=== PATIENT | male | born 1980 | race Two or more races ===

== ENCOUNTER 2020-09-02 00:36 | Emergency (ER) | payer OTHER ==
[~2020-09-02] VITALS: Ht 157.5 cm; Wt 63.6 kg
--- NOTE | 2020-09-02 01:02 | ED.ADGEN ---
General Adult EDM: Chief Complaint: BACK PAIN OR INJURY HPI: HPI: Patient is a 40 year old male presents via EMS for low back pain that radiates down his leg for 3 days. Patient had been doing work on taking for fence prior to the pain starting. Denies any falls. Denies any fevers, bowel or bladder d ysfunction, weakness, or any hematuria. Has been taking Tylenol for the pain without improvement. Denies any past medical history or surgical history. Denies tobacco, alcohol, drug use. Patient speaks Hmong and history was facilitated through spanish interpreter/translator phone Review of Systems: Review of Systems: Constitutional: Denies fever or chills. [] Eyes: Denies change in visual acuity. [] HENT: Denies nasal congestion or sore throat. [] Respiratory: Denies cough or shortness of breath. [] Cardiovascular: Denies chest pain or edema. [] GI: Denies abdominal pain, nausea, vomiting, bloody stools or diarrhea. [] : Denies dysuria. [] Musculoskeletal: Back pain rating down left Integument: Denies rash. [] Neurologic: Denies headache, focal weakness or sensory changes. [] Endocrine: Denies polyuria or polydipsia. [] Lymphatic: Denies swollen glands. [] Psychiatric: Denies depression or anxiety. [] Current Medications: Current Medications Medications (Trade) Dose Ordered Sig/Panda Start Time Stop Time Status Last Admin Dose Admin Ketorolac Tromethamine (Toradol Im) 60 mg 1X ONCE 09/02/20 01:30 09/02/20 01:31 DC 09/02/20 01:39 60 MG Orphenadrine Citrate (Norflex) 60 mg 1X ONCE 09/02/20 01:30 09/02/20 01:31 DC 09/02/20 01:39 60 MG Allergies: Allergies: Allergies Coded Allergies Type Severity Reaction Last Updated Verified No Known Drug Allergies 09/02/20 No Physical Exam: PE: Constitutional: Well developed, well nourished, mild distress, non-toxic appearance. [] HENT: Normocephalic, atraumatic, bilateral external ears normal, oropharynx moist, no oral exudates, nose normal. [] Eyes: PERRLA, EOMI, conjunctiva normal, no discharge. [] Neck: Normal range of motion, no tenderness, supple, no stridor. [] Cardiovascular:Heart rate regular rhythm, no murmur [] Lungs & Thorax: Bilateral breath sounds clear to auscultation [] Abdomen: Bowel sounds normal, soft, no tenderness, no masses, no pulsatile masses. [] Skin: Warm, dry, no erythema, no rash. [] Back: Left lower tenderness, no step-off or deformities, positive supine straight leg raise test on the right Extremities: No tenderness, no cyanosis, no clubbing, ROM intact, no edema. [] Neurologic: Alert and oriented X 3, normal motor function, normal sensory function, no focal deficits noted. [] Psychologic: Affect normal, judgement normal, mood normal. [] Current Patient Data: Vital Signs: Vital Signs Date Time Temp Pulse Resp B/P (MAP) Pulse Ox O2 Delivery O2 Flow Rate FiO2 09/02/20 01:04 98.1 78 21 143/84 (103) 97 Room Air 98.1 EKG: EKG: [] Heart Score: Risk Factors: Risk Factors: DM, Current or recent (<one month) smoker, HTN, HLP, family history of CAD, obesity. Risk Scores: Score 0 - 3: 2.5% MACE over next 6 weeks - Discharge Home Score 4 - 6: 20.3% MACE over next 6 weeks - Admit for Clinical Observation Score 7 - 10: 72.7% MACE over next 6 weeks - Early Invasive Strategies Radiology/Procedures: Radiology/Procedures: s1 ra CT LUMBAR SPINE WO CONTRAST History:Reason: radiculopathy / Spl. Instructions: / History: Technique: Noncontrast CT was performed of the lumbar spine. Multiplanar reconstructions were performed. Exposure: One or more of the following individualized dose reduction techniques were utilized for this examination: 1. Automated exposure control 2. Adjustment of the mA and/or kV according to patient size 3. Use of iterative reconstruction technique. Comparison: None Findings: Normal vertebral body height and alignment. No fracture. T12-L1: No canal or neuroforaminal narrowing. L1-L2: No canal or neuroforaminal narrowing. L2-L3: Small disc bulge. No canal or neuroforaminal narrowing. L3-L4: Small broad-based disc bulge. Mild facet arthropathy. No canal or neuroforaminal narrowing. L4-L5: Broad-based disc bulge. Mild facet arthropathy. Bilateral subarticular recess narrowing. Minimal canal narrowing. Ligament of flavum thickening. Mild bilateral neuroforaminal narrowing. L5-S1: Broad-based disc bulge with superimposed left subarticular disc extrusion extending slightly inferiorly. Bilateral subarticular recess narrowing, left greater than right. Mild right and moderate left neuroforaminal narrowing. Minimal canal narrowing. Mild facet arthropathy. Abutment of the bilateral descending S1 nerve roots, left greater than right. Impression: 1. Multilevel lumbar spondylosis most prominent L4-L5 and L5-S1. 2. L5-S1 disc bulge with left subarticular disc extrusion contributing to bilateral subarticular recess narrowing with abutment of the descending S1 nerve roots, left greater than right. Correlate for radiculopathy. [] Course & Med Decision Making: Course & Med Decision Making Pertinent Labs and Imaging studies reviewed. (See chart for details) [] Dragon Disclaimer: Dragon Disclaimer: This electronic medical record was generated, in whole or in part, using a voice recognition dictation system. Departure Departure Impression: Primary Impression: Herniation of intervertebral disc between L5 and S1 Disposition: 01 DC HOME SELF CARE/HOMELESS Referrals: [facility] Patient Instructions: Back Exercises, [id number] Scripts Cyclobenzaprine Hcl (CYCLOBENZAPRINE HCL) 10 Mg Tablet 1 TAB PO TID PRN PRN for PAIN for 5 Days, #15 TAB Prov: EMELINA PAREKH MD 09/02/20 Ibuprofen (IBUPROFEN) 800 Mg Tablet 800 MG PO PRN Q8HRS PRN for INFLAMMATION for 10 Days, #30 TAB Prov: EMELINA PAREKH MD 09/02/20 EMELINA PAREKH MD Sep 02, 2020 01:02
[2020-09-02] MEDS: KETOROLAC 60 MG/2 ML VIAL. IM ONE (01:39)
[2020-09-02] MEDS: ORPHENADRINE CITRATE 60 MG/2 ML VIAL. IM ONE (01:39)
--- NOTE | 2020-09-02 01:59 | RAD ---
CT LUMBAR SPINE WO CONTRAST History:Reason: radiculopathy / Spl. Instructions: / History: Technique: Noncontrast CT was performed of the lumbar spine. Multiplanar reconstructions were performed. Exposure: One or more of the following individualized dose reduction techniques were utilized for this examination: 1. Automated exposure control 2. Adjustment of the mA and/or kV according to patient size 3. Use of iterative reconstruction technique. Comparison: None Findings: Normal vertebral body height and alignment. No fracture. T12-L1: No canal or neuroforaminal narrowing. L1-L2: No canal or neuroforaminal narrowing. L2-L3: Small disc bulge. No canal or neuroforaminal narrowing. L3-L4: Small broad-based disc bulge. Mild facet arthropathy. No canal or neuroforaminal narrowing. L4-L5: Broad-based disc bulge. Mild facet arthropathy. Bilateral subarticular recess narrowing. Minimal canal narrowing. Ligament of flavum thickening. Mild bilateral neuroforaminal narrowing. L5-S1: Broad-based disc bulge with superimposed left subarticular disc extrusion extending slightly inferiorly. Bilateral subarticular recess narrowing, left greater than right. Mild right and moderate left neuroforaminal narrowing. Minimal canal narrowing. Mild facet arthropathy. Abutment of the bilateral descending S1 nerve roots, left greater than right. Impression: 1. Multilevel lumbar spondylosis most prominent L4-L5 and L5-S1. 2. L5-S1 disc bulge with left subarticular disc extrusion contributing to bilateral subarticular recess narrowing with abutment of the descending S1 nerve roots, left greater than right. Correlate for radiculopathy. Electronically signed by: Dago Josue DO (09/02/2020 1:56 AM) [facility]
[2020-09-02] MEDS ORDERED: CYCL10TA2 PO (02:21)
[2020-09-02] MEDS ORDERED: IBUP-1060 PO (02:21)
[2020-09-02] MEDS: HYDROmorphone 2 MG/ML VIAL IM ONE (03:30)
[2020-09-02 03:37] VITALS: BP 120/78
[2020-09-03] MEDS ORDERED: OXYC1TAB15 PO (04:38)
[2020-09-03] MEDS ORDERED: METH4TAB2 PO (04:38)
== END 2020-09-02 03:50 | disposition home or self-care (01) ==
LOC: ER 00:36
DX: M51.27 Other intervertebral disc displacement, lumbosacral region (principal); M47.817 Spondylosis without myelopathy or radiculopathy, lumbosacral region
CPT/HCPCS: 72131; 96372; 99285; J1170; J1885; J2360

== ENCOUNTER 2020-09-03 03:27 | Emergency (ER) | payer OTHER ==
[~2020-09-03] VITALS: Ht 160 cm; Wt 63.6 kg
[~2020-09-03 03:27] MED LIST: CYCL10TA2 PO; IBUP-1060 PO
[2020-09-03 03:29] VITALS: BP 115/70
--- NOTE | 2020-09-03 03:42 | PHYS DOC ---
Past Medical History Past Medical History: No Pertinent History Past Surgical History: No Surgical History Smoking Status: Current Every Day Smoker Alcohol Use: None General Adult EDM: Chief Complaint: BACK PAIN - NO INJURY HPI: HPI: Patient is a 40 year old male who arrives via EMS with a chief complaint of lumbar back pain. Patient was seen here yesterday for similar symptoms. Patient was sent home with Flexeril and ibuprofen. Patient had a CT done y esterday which showed a disc herniation at L5-S1. Patient has had pain for the last 4 days. Patient denies any specific trauma. Denies any falls. Denies any fevers, bowel or bladder dysfunction, weakness, or any hematuria. Pain is currently 10 out of 10 and sharp stabbing and continues to radiate down the left leg Review of Systems: Review of Systems: Constitutional: Denies fever or chills. [] Eyes: Denies change in visual acuity. [] HENT: Denies nasal congestion or sore throat. [] Respiratory: Denies cough or shortness of breath. [] Cardiovascular: Denies chest pain or edema. [] GI: Denies abdominal pain, nausea, vomiting, bloody stools or diarrhea. [] : Denies dysuria. [] Musculoskeletal: Complains of back pain Integument: Denies rash. [] Neurologic: Denies headache, focal weakness or sensory changes. [] Endocrine: Denies polyuria or polydipsia. [] Lymphatic: Denies swollen glands. [] Psychiatric: Denies depression or anxiety. [] Heart Score: Risk Factors: Risk Factors: DM, Current or recent (<one month) smoker, HTN, HLP, family history of CAD, obesity. Risk Scores: Score 0 - 3: 2.5% MACE over next 6 weeks - Discharge Home Score 4 - 6: 20.3% MACE over next 6 weeks - Admit for Clinical Observation Score 7 - 10: 72.7% MACE over next 6 weeks - Early Invasive Strategies Current Medications: Current Medications Medications (Trade) Dose Ordered Sig/Panda Start Time Stop Time Status Last Admin Dose Admin Diazepam (Valium) 5 mg 1X ONCE 09/03/20 03:45 09/03/20 03:46 UNV Hydromorphone HCl (Dilaudid) 1 mg 1X ONCE 09/03/20 03:45 09/03/20 03:46 UNV Ketorolac Tromethamine (Toradol Im) 30 mg 1X ONCE 09/03/20 03:45 09/03/20 03:46 UNV Allergies: Allergies: Allergies Coded Allergies Type Severity Reaction Last Updated Verified No Known Drug Allergies 09/02/20 No Physical Exam: PE: Constitutional: Well developed, well nourished, no acute distress, non-toxic appearance. [] HENT: Normocephalic, atraumatic, bilateral external ears normal, no trismus nose normal. [] Eyes: PERRLA, EOMI, conjunctiva normal, no discharge. [] Neck: Normal range of motion, no tenderness, supple, no stridor. [] Cardiovascular:Heart rate regular rhythm, no murmur [] Lungs & Thorax: Bilateral breath sounds clear, no respiratory distress Abdomen: soft, no tenderness, no masses, no pulsatile masses. [] Skin: Warm, dry, no erythema, no rash. [] Back: Tenderness to left lower lumbar area Extremities: No tenderness, no cyanosis, no clubbing, ROM intact, no edema. [] Neurologic: Alert and oriented X 3, normal motor function, normal sensory function, no focal deficits noted. [No saddle anesthesia, dorsiflexion of the great toes intact bilateral lower extremities] Psychologic: Affect normal, judgement normal, mood normal. [] Current Patient Data: Vital Signs: Vital Signs Date Time Temp Pulse Resp B/P (MAP) Pulse Ox O2 Delivery O2 Flow Rate FiO2 09/03/20 04:00 100 Room Air EKG: EKG: [] Radiology/Procedures: Radiology/Procedures: [] Course & Med Decision Making: Course & Med Decision Making Pertinent Labs and Imaging studies reviewed. (See chart for details) [] 40-year-old male arrives via EMS with a chief complaint of radicular back pain. Patient has no signs of cauda equina. Dorsiflexion of great toes intact. There is no saddle anesthesia. Patient reassessed at 4:35 AM and clinically improved. Patient will be placed on opiate pain medicine and a Medrol Dosepak. Patient is otherwise stable for discharge and outpatient follow-up. Return precautions given. Jean Pierre Disclaimer: Jean Pierre Disclaimer: This electronic medical record was generated, in whole or in part, using a voice recognition dictation system. Departure Departure Impression: Primary Impression: Lumbar radiculopathy Disposition: 01 DC HOME SELF CARE/HOMELESS Condition: STABLE Referrals: NO PCP (PCP) JERI LO MD 2-3 DAYS Patient Instructions: Lumbar Puncture and Cerebrospinal Fluid Exam Additional Instructions: EMERGENCY DEPARTMENT GENERAL DISCHARGE INSTRUCTIONS THANK YOU for coming to [facility] Emergency Department (ED) felecia feldman and trusting us with your care. We trust that you had a positive experience in our Emergency Department. If you wish to speak to the department Management you can contact the department store door greeter at . YOUR FOLLOW UP INSTRUCTIONS ARE FOLLOWS: Do you have a private doctor? If you do not have a private doctor, please ask for a resource list of physicians or clinics that may be able to assist you with follow up care. The Emergency Physician has interpreted your x-rays. The X-ray specialist will also review them. If there is a change in the findings you will be notified in 48 hours when at all possible. A lab test or lab culture may have been done, your results will be reviewed and you will be notified if you need a change in treatment. ADDITIONAL INSTRUCTIONS AND INFORMATION Your care today has been supervised by a physician who is specially trained in emergency care. Many problems require more than one evaluation for a complete diagnosis and treatment. We recommend that you schedule your follow up appointment as recommended to ensure complete treatment of your illness or injury. If you are unable to obtain follow up care and continue to have a problem, or if your condition worsens we recommend that you return to the ED. We are not able to safely determine your condition over the phone nor are we able to give sound medical advice over the phone. For these safety reasons, if you call for medical advice we will ask you to come to the ED for further evaluation If you have any questions regarding these discharge instructions please call the ED at . SAFETY INFORMATION In the interest of safety, wellness, and injury prevention; we encourage you to wear your seatbelt, if you smoke; quit smoking, and we encourage your family to use protective helmet for bicycling and other sporting events that present an increased risk for head injury. IF YOUR SYMPTOMS WORSEN OR NEW SYMPTOMS DEVELOP, OR YOU HAVE CONCERNS ABOUT YOUR CONDITION; OR IF YOUR CONDITION WORSENS WHILE YOU ARE WAITING FOR YOUR FOLLOW UP APPOINTMENT; EITHER CONTACT YOUR PRIMARY CARE DOCTOR, THE PHYSICIAN WHOSE NAME AND NUMBER YOU WERE GIVEN, OR RETURN TO THE ED IMMEDIATELY. Scripts Methylprednisolone (MEDROL) 4 Mg Tab.ds.pk 1 PKG PO UD, #1 PKG Prov: GUILLERMO JOHNSON MD 09/03/20 Oxycodone/Apap 5-325 (PERCOCET 5-325 MG TABLET ) 1 Each Tablet 1-2 EACH PO PRN TID PRN for PAIN, #16 TAB pain Prov: GUILLERMO JOHNSON MD 09/03/20 GUILLERMO JOHNSON MD Sep 03, 2020 03:42
[2020-09-03] MEDS: diazePAM 5 MG TABLET PO ONE (04:00)
[2020-09-03] MEDS: HYDROmorphone 2 MG/ML VIAL IM ONE (04:00)
[2020-09-03] MEDS: KETOROLAC 30 MG/ML VIAL. IM ONE (04:01)
[2020-09-03] MEDS ORDERED: METH4TAB2 PO (04:38)
[2020-09-03] MEDS ORDERED: OXYC1TAB15 PO (04:38)
== END 2020-09-03 04:50 | disposition home or self-care (01) ==
LOC: ER 03:27
DX: M54.16 Radiculopathy, lumbar region (principal); F17.200 Nicotine dependence, unspecified, uncomplicated
CPT/HCPCS: 96372; 99284; J1170; J1885

== ENCOUNTER 2020-09-07 19:27 | Emergency (ER) | payer OTHER ==
[~2020-09-07] VITALS: Ht 165.1 cm; Wt 65.9 kg
[~2020-09-07 19:27] MED LIST changes: +METH4TAB2 PO; +OXYC1TAB15 PO
[2020-09-07 19:55] LABS: BASO % 0 % (0-3); EOS # 0.1 x10^3/uL (0.0-0.7); EOS % 1 % (0-3); HEMATOCRIT 43.2 % (39.0-53.0); HEMOGLOBIN 14.4 g/dL (13.0-17.5); LYMPH # 1.6 x10^3/uL (1.0-4.8); LYMPH % 24 % (24-48); MEAN CORPUSCULAR HEMOGLOBIN 29 pg (25-35); MEAN CORPUSCULAR HGB CONC 33 g/dL (31-37); MEAN CORPUSCULAR VOLUME 86 fL (79-100); MONO # 0.4 x10^3/uL (0.0-1.1); MONO % 6 % (0-9); NEUT # 4.6 x10^3/uL (1.8-7.7); NEUT % 69 % (31-73); PLATELET COUNT 213 x10^3/uL (140-400); RED CELL DISTRIBUTION WIDTH 13.4 % (11.5-14.5); WHITE BLOOD COUNT 6.6 x10^3/uL (4.0-11.0)
[2020-09-07] MEDS ORDERED: HYDROmorphone 2 MG/ML VIAL IVP ONE (20:00)
[2020-09-07] MEDS ORDERED: ORPHENADRINE CITRATE 60 MG/2 ML VIAL. IM ONE (20:15)
[2020-09-07 20:18] LABS: ALBUMIN/GLOBULIN RATIO 0.9 (1.0-1.7); C-REACTIVE PROTEIN 1.3 mg/L (0-3.3); CALCIUM 8.3 mg/dL (8.5-10.1); POTASSIUM 3.9 mmol/L (3.5-5.1); TOTAL BILIRUBIN 0.3 mg/dL (0.2-1.0); TOTAL PROTEIN 6.2 g/dL (6.4-8.2)
[2020-09-07 20:22] LABS: GFR 81.9
--- NOTE | 2020-09-07 20:22 | ED.ADGEN ---
Past Medical History Past Medical History: Other Additional Past Medical Histor: HERNIATED DISC BETWEEN L5-S1 Past Surgical History: No Surgical History Smoking Status: Current Every Day Smoker Alcohol Use: None General Adult EDM: Chief Complaint: LOWER BACK PAIN OR INJURY HPI: HPI: Patient is a 40 year old male who presents with worsening left low back pain with left-sided sciatica down to his ankle. Patient was seen here 5 and 4 days ago for the same. 4 days ago he had a lumbar puncture. Today he went and got acupuncture and massage therapies. Patient states he is unable to walk or sit on the toilet due to the pain. Denies any numbness or muscle weakness. Is able to move both lower extremities. No bowel or bladder dysfunction. No fevers, no new injuries. Patient states long and history is provided via translation services Review of Systems: Review of Systems: Negative except HPI Current Medications: Current Medications Medications (Trade) Dose Ordered Sig/Panda Start Time Stop Time Status Last Admin Dose Admin Hydromorphone HCl (Dilaudid) 2 mg 1X ONCE 09/07/20 23:55 09/07/20 23:56 DC 09/08/20 00:02 2 MG Orphenadrine Citrate (Norflex) 60 mg 1X ONCE 09/07/20 20:15 09/07/20 20:18 DC 09/07/20 20:59 60 MG Allergies: Allergies: Allergies Coded Allergies Type Severity Reaction Last Updated Verified No Known Drug Allergies 09/02/20 No Physical Exam: PE: Constitutional: Well developed, well nourished, moderate distress HENT: Normocephalic, atraumatic, bilateral external ears normal, oropharynx moist, no oral exudates, nose normal. [] Eyes: PERRLA, EOMI, conjunctiva normal, no discharge. [] Neck: Normal range of motion, no tenderness, supple, no stridor. [] Cardiovascular:Heart rate regular rhythm, no murmur [] Lungs & Thorax: Bilateral breath sounds clear to auscultation [] Abdomen: Bowel sounds normal, soft, no tenderness, no masses, no pulsatile masses. [] Skin: Warm, dry, no erythema, no rash. [] Back: Tenderness on left lower back Extremities: No tenderness, no cyanosis, no clubbing, ROM intact, no edema. [] Neurologic: Alert and oriented X 3, normal motor function, normal sensory function, no focal deficits noted. [] Psychologic: Affect normal, judgement normal, mood normal. [] Current Patient Data: Labs: Laboratory Tests Test 09/07/20 19:37 White Blood Count 6.6 x10^3/uL (4.0-11.0) Red Blood Count 5.00 x10^6/uL (4.30-5.70) Hemoglobin 14.4 g/dL (13.0-17.5) Hematocrit 43.2 % (39.0-53.0) Mean Corpuscular Volume 86 fL (79-100) Mean Corpuscular Hemoglobin 29 pg (25-35) Mean Corpuscular Hemoglobin Concent 33 g/dL (31-37) Red Cell Distribution Width 13.4 % (11.5-14.5) Platelet Count 213 x10^3/uL (140-400) Neutrophils (%) (Auto) 69 % (31-73) Lymphocytes (%) (Auto) 24 % (24-48) Monocytes (%) (Auto) 6 % (0-9) Eosinophils (%) (Auto) 1 % (0-3) Basophils (%) (Auto) 0 % (0-3) Neutrophils # (Auto) 4.6 x10^3/uL (1.8-7.7) Lymphocytes # (Auto) 1.6 x10^3/uL (1.0-4.8) Monocytes # (Auto) 0.4 x10^3/uL (0.0-1.1) Eosinophils # (Auto) 0.1 x10^3/uL (0.0-0.7) Basophils # (Auto) 0.0 x10^3/uL (0.0-0.2) Sodium Level 141 mmol/L (136-145) Potassium Level 3.9 mmol/L (3.5-5.1) Chloride Level 107 mmol/L (98-107) Carbon Dioxide Level 30 mmol/L (21-32) Anion Gap 4 (6-14) L Blood Urea Nitrogen 16 mg/dL (8-26) Creatinine 1.0 mg/dL (0.7-1.3) Estimated GFR (Cockcroft-Gault) 81.9 BUN/Creatinine Ratio 16 (6-20) Glucose Level 162 mg/dL (70-99) H Calcium Level 8.3 mg/dL (8.5-10.1) L Total Bilirubin 0.3 mg/dL (0.2-1.0) Aspartate Amino Transferase (AST) 33 U/L (15-37) Alanine Aminotransferase (ALT) 78 U/L (16-63) H Alkaline Phosphatase 66 U/L (46-116) C-Reactive Protein, Quantitative 1.3 mg/L (0-3.3) Total Protein 6.2 g/dL (6.4-8.2) L Albumin 3.0 g/dL (3.4-5.0) L Albumin/Globulin Ratio 0.9 (1.0-1.7) L Laboratory Tests 09/07/20 19:37 Laboratory Tests 09/07/20 19:37 Vital Signs: Vital Signs Date Time Temp Pulse Resp B/P (MAP) Pulse Ox O2 Delivery O2 Flow Rate FiO2 09/08/20 00:07 98.7 72 24 125/86 (99) 98 Room Air 98.7 EKG: EKG: [] Heart Score: Risk Factors: Risk Factors: DM, Current or recent (<one month) smoker, HTN, HLP, family history of CAD, obesity. Risk Scores: Score 0 - 3: 2.5% MACE over next 6 weeks - Discharge Home Score 4 - 6: 20.3% MACE over next 6 weeks - Admit for Clinical Observation Score 7 - 10: 72.7% MACE over next 6 weeks - Early Invasive Strategies Radiology/Procedures: Radiology/Procedures: Date: 09/07/2020 8:14 PM Indication: post LP complication, pain, weakness Comparison: None. Technique: Helical CT images of the lumbar spine were obtained without contrast. Coronal and sagittal reformatted images were also performed. One or more of the following dose reduction techniques were utilized: Automated exposure control (AEC), Adjustment of mA and/or kV according to patient size, Use of iterative reconstruction technique such as ASiR, CT scan done according to ALARA and image gently/image wisely. Findings: The lumbar spine is normally aligned. No acute fracture. Vertebral body heights are maintained without compression deformity. Mild degenerative disc disease. Unchanged lumbar spondylosis, worst at L5-S1 where there is a left paracentral inferiorly migrating disc extrusion which narrowing is the left greater than right lateral recesses. No soft tissue abnormality within the visualized abdomen or pelvis. The visualized abdominal aorta is normal caliber. IMPRESSION: 1. No evidence of hyperdense spinal canal hematoma. 2. Unchanged lumbar spondylosis, worst at L5-S1 with a prominent disc extrusion. [] Course & Med Decision Making: Course & Med Decision Making Pertinent Labs and Imaging studies reviewed. (See chart for details) Pain improved and CT exam unchanged. Discussed patient needs to continue his stretching exercises and was again given information for neurosurgery to follow- up with [] Jean Pierre Disclaimer: Jean Pierre Disclaimer: This electronic medical record was generated, in whole or in part, using a voice recognition dictation system. Departure Departure Impression: Primary Impression: Sciatica of left side Disposition: 01 DC HOME SELF CARE/HOMELESS Condition: STABLE Referrals: JERI LO MD Patient Instructions: Back Exercises, Generic, [employer] Scripts Oxycodone Hcl (OXYCODONE HCL IMMED.RELEASE) 10 Mg Tablet 1 TAB PO PRN TID PRN for pain MDD 3 Tablet(s) for 5 Days, #15 TAB 0 Refills Prov: EMELINA PAREKH MD 09/07/20 EMELIAN PAREKH MD Sep 07, 2020 20:21
--- NOTE | 2020-09-07 20:46 | RAD ---
CT LUMBAR SPINE WO Date: 09/07/2020 8:14 PM Indication: post LP complication, pain, weakness Comparison: None. Technique: Helical CT images of the lumbar spine were obtained without contrast. Coronal and sagitta l reformatted images were also performed. One or more of the following dose reduction techniques were utilized: Automated exposure control (AEC), Adjustment of mA and/or kV according to patient size, Us e of iterative reconstruction technique such as ASiR, CT scan done according to ALARA and image gentl y/image wisely. Findings: The lumbar spine is normally aligned. No acute fracture. Vertebral body heights are maintained withou t compression deformity. Mild degenerative disc disease. Unchanged lumbar spondylosis, worst at L5-S1 where there is a left pa racentral inferiorly migrating disc extrusion which narrowing is the left greater than right lateral recesses. No soft tissue abnormality within the visualized abdomen or pelvis. The visualized abdominal aorta is normal caliber. IMPRESSION: 1. No evidence of hyperdense spinal canal hematoma. 2. Unchanged lumbar spondylosis, worst at L5-S1 with a prominent disc extrusion. Electronically signed by: James Longoria MD (09/07/2020 8:43 PM) [facility]
[2020-09-07] MEDS ORDERED: OXYC10TA PO (22:01)
[2020-09-07] MEDS ORDERED: HYDROmorphone 2 MG/ML VIAL IM ONE (23:55)
[2020-09-08 00:07] VITALS: BP 125/86
== END 2020-09-08 00:10 | disposition home or self-care (01) ==
LOC: ER 19:27
DX: M54.42 Lumbago with sciatica, left side (principal); F17.200 Nicotine dependence, unspecified, uncomplicated; Z98.890 Other specified postprocedural states
CPT/HCPCS: 36415; 72131; 80053; 85025; 86140; 96372; 96374; 99285; J1170; J2360

== ENCOUNTER 2020-09-14 04:52 | Emergency (ER) | payer OTHER ==
[~2020-09-14] VITALS: Ht 165.1 cm; Wt 65.9 kg
[~2020-09-14 04:52] MED LIST changes: +OXYC10TA PO
--- NOTE | 2020-09-14 05:09 | PHYS DOC ---
Past Medical History Past Medical History: No Pertinent History, Other Additional Past Medical Histor: HERNIATED DISC BETWEEN L5-S1 Past Surgical History: No Surgical History Smoking Status: Current Every Day Smoker Alcohol Use: None General Adult EDM: Chief Complaint: LOWER BACK PAIN OR INJURY HPI: HPI: Patient is a 40 year old male who was brought here by EMS from home due to low back pain that radiated to his left buttock area. Patient has history of chronic low back pain, this is his fourth visit to the ER for the same problem this morning. Patient denies any injury. Patient denies any bowel or bladder incontinence. Patient was seen here on September 02, September 03, September 07 for the same problem, CT scan of his lumbar spine show some disc problem at L5 and S1 area. Patient was given steroids, Flexeril, Profen, Percocet for pain control. Pain became more severe this morning so EMS were called to take him here for evaluation. Patient denies any abdominal pain. No nausea vomiting. Patient was seen by Dr. REJI CRISOSTOMO, NEUROSURGEON ON 09/11/20. He is scheduled for MRI OF HIS LUMBAR SPINE TOMORROW AT 8:30 AM. Review of Systems: Review of Systems: Constitutional: Denies fever or chills. [] Eyes: Denies change in visual acuity. [] HENT: Denies nasal congestion or sore throat. [] Respiratory: Denies cough or shortness of breath. [] Cardiovascular: Denies chest pain or edema. [] GI: Denies abdominal pain, nausea, vomiting, bloody stools or diarrhea. [] : Denies dysuria. [] Musculoskeletal: Positive for low back pain that radiated to his left buttock area. Integument: Denies rash. [] Neurologic: Denies headache, focal weakness or sensory changes. [] Endocrine: Denies polyuria or polydipsia. [] Lymphatic: Denies swollen glands. [] Psychiatric: Denies depression or anxiety. [] Heart Score: Risk Factors: Risk Factors: DM, Current or recent (<one month) smoker, HTN, HLP, family history of CAD, obesity. Risk Scores: Score 0 - 3: 2.5% MACE over next 6 weeks - Discharge Home Score 4 - 6: 20.3% MACE over next 6 weeks - Admit for Clinical Observation Score 7 - 10: 72.7% MACE over next 6 weeks - Early Invasive Strategies Current Medications: Current Medications Medications (Trade) Dose Ordered Sig/Panda Start Time Stop Time Status Last Admin Dose Admin Ketorolac Tromethamine (Toradol Im) 60 mg 1X ONCE 09/14/20 05:30 09/14/20 05:31 Methylprednisolone Sodium Succinate (SOLU-Medrol 125MG VIAL) 125 mg 1X ONCE 09/14/20 05:15 09/14/20 05:16 UNV Morphine Sulfate (Morphine Sulfate) 4 mg 1X ONCE 09/14/20 05:15 09/14/20 05:16 UNV Allergies: Allergies: Allergies Coded Allergies Type Severity Reaction Last Updated Verified No Known Drug Allergies 09/02/20 No Physical Exam: PE: Constitutional: Well developed, well nourished, no acute distress, non-toxic appearance. [] HENT: Normocephalic, atraumatic, bilateral external ears normal, oropharynx moist, no oral exudates, nose normal. [] Eyes: PERRLA, EOMI, conjunctiva normal, no discharge. [] Neck: Normal range of motion, no tenderness, supple, no stridor. [] Cardiovascular:Heart rate regular rhythm, no murmur [] Lungs & Thorax: Bilateral breath sounds clear to auscultation [] Abdomen: Bowel sounds normal, soft, no tenderness, no masses, no pulsatile masses. [] Skin: Warm, dry, no erythema, no rash. [] Back: There is midline tenderness to palpation at L5 and S1 area, no CVA tenderness to palpation. There is bony there is no bony step-off. Extremities: No tenderness, no cyanosis, no clubbing, ROM intact, no edema. [] Neurologic: Alert and oriented X 3, normal motor function, normal sensory fu nction, no focal deficits noted. [] Psychologic: Affect normal, judgement normal, mood normal. [] EKG: EKG: [] Radiology/Procedures: Radiology/Procedures: [] Course & Med Decision Making: Course & Med Decision Making Pertinent Labs and Imaging studies reviewed. (See chart for details) Patient is a 40-year-old male with chronic low back pain that radiates to left buttock area, he already had a CT scan of his lumbar spine show disc problem at L5-S1, he is scheduled for an MRI lumbar spine tomorrow at 830, his pain is under control at this time. Patient will be discharged home with more pain medication he will follow up with the neurosurgeon Dr. Reji Crisostomo as scheduled. Jean Pierre Disclaimer: Jean Pierre Disclaimer: This electronic medical record was generated, in whole or in part, using a voice recognition dictation system. Departure Departure Impression: Primary Impression: Acute left-sided low back pain with sciatica Disposition: 01 DC HOME SELF CARE/HOMELESS Condition: IMPROVED Referrals: NO PCP (PCP) JERI LO MD please follow up with this neurosurgeon for your back problem. Patient Instructions: Back Pain, Adult, Sciatica Additional Instructions: Thank you for visiting our Emergency Department. We appreciate you trusting us with your care. If any additional problems come up don't hesitate to return to visit us. Please follow up with your primary care provider so they can plan additional care if needed and know about the problem that you had. If symptoms worsen come back to the Emergency Department. Any concerning symptoms that start such as chest pain, shortness of air, weakness or numbness on one side of the body, running high fevers or any other concerning symptoms return to the ER. Scripts Hydrocodone/Ibuprofen (HYDROCODONE-IBUPROFEN 7.5-200) 1 Each Tablet 1 TAB PO PRN Q6HRS PRN for PAIN, #15 TAB 0 Refills Prov: SHAHRAM DOMINGUEZ DO 09/14/20 SHAHRAM DOMINGUEZ DO Sep 14, 2020 05:09
[2020-09-14] MEDS ORDERED: methylPREDNISolone SOD SUCC PF 125 MG/2 ML VIAL. IM ONE (05:30)
[2020-09-14] MEDS ORDERED: MORPHINE SULFATE 4 MG/ML VIAL. IM ONE (05:30)
[2020-09-14] MEDS ORDERED: KETOROLAC 60 MG/2 ML VIAL. IM ONE (05:30)
[2020-09-14] MEDS ORDERED: HYDROCODONE-IB1 EAC3 PO (05:52)
[2020-09-14 06:00] VITALS: BP 113/79
== END 2020-09-14 06:05 | disposition home or self-care (01) ==
LOC: ER 04:52
DX: M54.42 Lumbago with sciatica, left side (principal); F17.200 Nicotine dependence, unspecified, uncomplicated
CPT/HCPCS: 96372; 99284; J1885; J2270; J2930

== ENCOUNTER → 2020-09-15 | Outpatient (CLI) | payer OTHER ==
[2020-09-14 06:00] VITALS: BP 113/79
[~2020-09-15] MED LIST changes: +HYDROCODONE-IB1 EAC3 PO; +METH-38 PO; +OXYC-325 PO; +SENN1TAB99 PO
--- NOTE | 2020-09-15 13:45 | KCIC ---
MRI of the lumbar spine without contrast 09/15/2020 CLINICAL HISTORY: Low back pain which radiates down the left leg. TECHNIQUE: Unenhanced T1-weighted and T2-weighted sagittal and axial and inversion recovery sagittal images of the lumbar spine were obtained. FINDINGS: Comparison is made to the patient's CT scan of the lumbar spine dated 09/07/2020. Minimal S-shaped curvature of the thoracolumbar spine is seen. Degenerative signal changes and loss o f height are seen involving the L5-S1 disc. Degenerative signal changes are seen within the marrow mistry rrounding this disc. The conus medullaris is normal morphology, position, and signal characteristics. The L1-2, L2-3 and L3-4 disc spaces are within normal limits. At the L4-5 disc space there is a mild generalized disc bulge. Degenerative changes are seen involvin g the facet joints bilaterally. There is mild ligamentum flavum hypertrophy bilaterally. These findin gs when combined result in mild central spinal canal stenosis. No neural foraminal stenosis is seen. At the L5-S1 disc space there is a mild generalized disc bulge. Superimposed on this disc bulge is a left paracentral focal disc herniation. This extrudes inferiorly. The extruded disc fragment 1.7 x 1. 7 x 1.2 cm in craniocaudal, transverse and AP dimensions. The disc herniation extends to the mid/infe rior left S1 level. Degenerative changes are seen involving the facet joints bilaterally. There is mi ld ligamentum flavum hypertrophy bilaterally. These findings result in mild to moderate left greater the right central spinal canal stenosis at L5-S1. No neural foraminal stenosis is seen. The extruded disc herniation result in severe left-sided central spinal canal stenosis at S1 and impinges upon the left S1 nerve root within the left aspect of the central spinal canal. IMPRESSION: The changes of degenerative disc disease are seen throughout the lumbar spine. These find ings result in mild central spinal canal stenosis at L4-5 and mild to moderate left greater than righ t central spinal canal stenosis at L5-S1. At the L5-S1 disc space a left paracentral focal disc herni ation is seen which extrudes inferiorly to the mid/inferior S1 level. It results in severe left-sided central spinal canal stenosis and impinges upon the left S1 nerve. Electronically signed by: Red Irving MD (09/15/2020 1:42 PM) [id number]
== END ==
LOC: KCIC MRI 08:31
PROVIDERS: ATTEND Neurological Surgery
DX: M51.06 Intervertebral disc disorders with myelopathy, lumbar region (principal); M51.16 Intervertebral disc disorders with radiculopathy, lumbar region; M51.17 Intervertebral disc disorders with radiculopathy, lumbosacral region; M48.07 Spinal stenosis, lumbosacral region
CPT/HCPCS: 72148

== ENCOUNTER → 2020-09-16 | Outpatient (CLI) | payer OTHER ==
[2020-09-14 06:00] VITALS: BP 113/79
[2020-09-16 14:13] LABS: PROTHROMBIN TIME PATIENT 12.1 SEC (11.7-14.0)
== END ==
LOC: SURGPAT 13:10
PROVIDERS: ATTEND Neurological Surgery
DX: Z01.812 Encounter for preprocedural laboratory examination (principal); Z20.828 Contact with and (suspected) exposure to other viral communicable diseases; M54.16 Radiculopathy, lumbar region; M51.06 Intervertebral disc disorders with myelopathy, lumbar region
CPT/HCPCS: 85610; 85730; 87641; U0003

== ENCOUNTER 2020-09-20 16:47 | Emergency (ER) | payer OTHER ==
[~2020-09-20] VITALS: Ht 170.2 cm; Wt 60.0 kg
[~2020-09-20 16:47] MED LIST changes: -METH-38 PO; -OXYC-325 PO; -SENN1TAB99 PO
[2020-09-20 17:12] VITALS: BP 151/82
[2020-09-20] MEDS ORDERED: DEXAMETHASONE 4 MG TABLET PO ONE (17:15)
[2020-09-20] MEDS ORDERED: MORPHINE SULFATE 4 MG/ML VIAL. IM ONE (17:15)
--- NOTE | 2020-09-20 17:27 | PHYS DOC ---
Past Medical History Past Medical History: Other Additional Past Medical Histor: HERNIATED DISC BETWEEN L5-S1 Past Surgical History: No Surgical History Smoking Status: Never Smoker Alcohol Use: None General Adult EDM: Chief Complaint: LOWER BACK PAIN OR INJURY HPI: HPI: Patient is a 40 year old male who presents with here with family today as he is having a lot of left sided low back pain with sharp shooting down the back of his leg. He has been out of his oxycodone 10 mg since yesterday. He is scheduled for surgery on his back with Dr. Moon on September 22. Patient has herniated disc from L5-S1. He has been evaluated also by Dr. Cerrato. Patient was able to get from wheelchair to the bed in the ED. He has not lost his bowel or bladder. He denies any numbness or tingling. Patient rating his sharp thania oting pain a 10 out of 10. Review of Systems: Review of Systems: Constitutional: Denies fever or chills. [] Eyes: Denies change in visual acuity. [] HENT: Denies nasal congestion or sore throat. [] Respiratory: Denies cough or shortness of breath. [] Cardiovascular: Denies chest pain or edema. [] GI: Denies abdominal pain, nausea, vomiting, bloody stools or diarrhea. [] : Denies dysuria. [] Musculoskeletal: +Left lower back pain, + posterior left leg sharp shooting pain. Denies or joint pain. [] Integument: Denies rash. [] Neurologic: Denies headache, focal weakness or sensory changes. [] Endocrine: Denies polyuria or polydipsia. [] Lymphatic: Denies swollen glands. [] Psychiatric: Denies depression or anxiety. [] Heart Score: Risk Factors: Risk Factors: DM, Current or recent (<one month) smoker, HTN, HLP, family history of CAD, obesity. Risk Scores: Score 0 - 3: 2.5% MACE over next 6 weeks - Discharge Home Score 4 - 6: 20.3% MACE over next 6 weeks - Admit for Clinical Observation Score 7 - 10: 72.7% MACE over next 6 weeks - Early Invasive Strategies Current Medications: Current Medications Medications (Trade) Dose Ordered Sig/Panda Start Time Stop Time Status Last Admin Dose Admin Dexamethasone (Decadron) 10 mg 1X ONCE 09/20/20 17:15 09/20/20 17:16 DC Morphine Sulfate (Morphine Sulfate) 4 mg 1X ONCE 09/20/20 17:15 09/20/20 17:16 DC Allergies: Allergies: Allergies Coded Allergies Type Severity Reaction Last Updated Verified No Known Drug Allergies 09/16/20 No Physical Exam: PE: Constitutional: Well developed, well nourished, no acute distress, non-toxic appearance. [] HENT: Normocephalic, atraumatic, bilateral external ears normal, oropharynx moist, no oral exudates, nose normal. [] Eyes: PERRLA, EOMI, conjunctiva normal, no discharge. [] Neck: Normal range of motion, no tenderness, supple, no stridor. [] Cardiovascular:Heart rate regular rhythm, no murmur [] Lungs & Thorax: Bilateral breath sounds clear to auscultation [] Abdomen: Bowel sounds normal, soft, no tenderness, no masses, no pulsatile masses. [] Skin: Warm, dry, no erythema, no rash. [] Back: Left lower back and back of left leg tenderness, no CVA tenderness. [] Extremities: Back of left lower leg tenderness, no cyanosis, no clubbing, ROM intact, no edema. [] Neurologic: Alert and oriented X 3, normal motor function, normal sensory function, no focal deficits noted. [] Psychologic: Affect normal, judgement normal, mood normal. [] Current Patient Data: Vital Signs: Vital Signs Date Time Temp Pulse Resp B/P (MAP) Pulse Ox O2 Delivery O2 Flow Rate FiO2 09/20/20 17:12 98.0 111 18 151/82 (105) 99 Room Air 98.0 EKG: EKG: [] Radiology/Procedures: Radiology/Procedures: [] Course & Med Decision Making: Course & Med Decision Making Pertinent Labs and Imaging studies reviewed. (See chart for details) See HPI. Patient is given 4 mg of morphine IM, dexamethasone in the ED. Patient is able to move both of his legs and all of his extremities. He is tender to the left lower back and the back of the left leg and cannot put pressure at this time. Ambulates with help. Skin pink warm and dry. Pedal pu lses strong and present. Cap refill less than 2 seconds. No extremity swelling. Patient to be reevaluated after medication given. Plan is to send him home with more pain medication. MRI shows on September 15, 2020 IMPRESSION: The changes of degenerative disc disease are seen throughout the lumbar spine. These findings result in mild central spinal canal stenosis at L4-5 and mild to moderate left greater than right central spinal canal stenosis at L5-S1. At the L5-S1 disc space a left paracentral focal disc herniation is seen which extrudes inferiorly to the mid/inferior S1 level. It results in severe left-sided central spinal canal stenosis and impinges upon the left S1 nerve. After medications were given patient was reexamined and he is much more comfo rtable and states he is ready to go home. He states he is feeling better. I will write him for some more pain medication. Patient to follow-up and have his procedure done on 22 September. [] Mary Ellenon Disclaimer: Jean Pierre Disclaimer: This electronic medical record was generated, in whole or in part, using a voice recognition dictation system. Departure Departure Impression: Primary Impression: Left-sided low back pain with left-sided sciatica Qualified Codes: M54.42 - Lumbago with sciatica, left side Disposition: 01 DC HOME SELF CARE/HOMELESS Condition: STABLE Referrals: NO PCP (PCP) Patient Instructions: Sciatica with [facility] Additional Instructions: Follow-up with Dr. Moon on September 22 as planned for your procedure. Take medication as prescribed with food. Do not drive or drink any alcohol on top of this medication as it would make you sleepy. Scripts Oxycodone HCl/Acetaminophen (Percocet 5-325 mg Tablet) 1 Each Tablet 1-2 TAB PO PRN TID PRN for PAIN, #10 TAB 0 Refills Prov: NATALIYA CORTEZ APRN 09/20/20 NATALIYA CORTEZ APRN Sep 20, 2020 17:27
[2020-09-20] MEDS ORDERED: OXYC10TA PO (18:12)
[2020-09-20] MEDS ORDERED: OXYC-325 PO (18:36)
== END 2020-09-20 18:56 | disposition home or self-care (01) ==
LOC: ER 16:47
DX: M54.42 Lumbago with sciatica, left side (principal)
CPT/HCPCS: 96372; 99283; J2270

== ENCOUNTER 2020-09-22 07:01 | Day surgery (SDC) | payer OTHER ==
[~2020-09-22 07:01] MED LIST changes: +BACITRACIN 50,000 UNIT in IV NORMAL SALINE 1000ML BAG 1,000 ML IRR ONE; +HYDROmorphone 2 MG/ML VIAL IV PRN; +LIDOCAINE 1% PF 2 ML VIAL. ID PRN; +ONDANSETRON PF 4 MG/2 ML VIAL. IV PRN; +OXYC-325 PO; +PROCHLORPERAZINE 10 MG/2 ML VIAL. IV PRN; +fentaNYL PF VIAL 100 MCG/2 ML VIAL IV PRN
[2020-09-22] MEDS ORDERED: GELATIN SPONGE SIZE 100. ONE (07:02)
[2020-09-22] MEDS ORDERED: LIDOCAINE 1%/EPI 1:100,000 20 ML VIAL. ONE (07:03)
[2020-09-22] MEDS ORDERED: BUPIVACAINE MPF 0.5% 30 ML VIAL. ONE (07:03)
[2020-09-22] MEDS ORDERED: THROMBIN TOPICAL 20,000 UNIT SPRAY.SYRN KIT TP ONE (07:03)
[2020-09-22] MEDS: IV RINGERS,LACTATED 1000ML 1,000 ML IV SCH ×2 (07:46→11:53)
[2020-09-22] MEDS ORDERED: LIDOCAINE 2% PF 5 ML VIAL. ONE (08:12)
[2020-09-22] MEDS ORDERED: DEXAMETHASONE SOD PHOS 20 MG/5 ML VIAL. ONE (08:12)
[2020-09-22] MEDS ORDERED: PROPOFOL 10 MG/ML (20ML) VIAL. IV ONE (08:12)
[2020-09-22] MEDS ORDERED: fentaNYL PF VIAL 100 MCG/2 ML VIAL ONE ×3 (08:12→13:13)
[2020-09-22] MEDS ORDERED: SUCCINYLCHOLINE 200 MG/10 ML VIAL. ONE (08:12)
[2020-09-22] MEDS ORDERED: ONDANSETRON PF 4 MG/2 ML VIAL. ONE (08:12)
[2020-09-22] MEDS ORDERED: REMIFENTANIL 2 MG VIAL. IV ONE (08:13)
[2020-09-22] MEDS ORDERED: MIDAZOLAM HCL/PF 2 MG/2 ML VIAL. ONE (08:13)
[2020-09-22] MEDS ORDERED: ROCURONIUM 50 MG/5 ML VIAL. ONE (08:13)
[2020-09-22] MEDS ORDERED: PHENYLEPHRINE in 0.9% NACL PF 1 MG/10 ML SYRINGE. IV ONE (09:34)
[2020-09-22] MEDS ORDERED: DESFLURANE > 120 MINUTES IH ONE (10:04)
[2020-09-22] MEDS ORDERED: PROPOFOL 50 ML IV ONE (10:06)
[2020-09-22] MEDS ORDERED: PHENYLEPHRINE 10 MG/ML VIAL. ONE (10:11)
[2020-09-22] MEDS ORDERED: DESFLURANE 61 TO 120 MINUTES IH ONE (11:00)
[2020-09-22] MEDS ORDERED: NEOSTIGMINE METHYLSULFATE 5 MG/5 ML SYRINGE. ONE (11:00)
[2020-09-22] MEDS ORDERED: GLYCOPYRROLATE 1 MG/5 ML VIAL. ONE (11:00)
--- NOTE | 2020-09-22 11:46 | PDOC ---
BRIEF OPERATIVE NOTE Date: Sep 22, 2020 Pre-Op Diagnosis Herniated disk L5-S1, radiculopathy, weakness Post-Op Diagnosis same Procedure Performed left L5-S1 hemilaminotomy with discectomy Surgeon Red Chemotherapist none Anesthesia Type: General Blood Loss 10mL Specimens Obtained disk and decompression Findings large herniated disk fragment just caudal to L5-S1 disk space, neuromonitoring improved at completion of procedure Complications none apparent ALAYNA VELASCO MD Sep 22, 2020 11:46
[2020-09-22] MEDS ORDERED: diphenhydrAMINE 50 MG/ML VIAL IV PRN (12:00)
[2020-09-22] MEDS ORDERED: fentaNYL PF VIAL 100 MCG/2 ML VIAL IVP PRN ×2 (12:00)
[2020-09-22] MEDS ORDERED: NALOXONE 0.4 MG/ML VIAL. IV PRN (12:00)
[2020-09-22] MEDS ORDERED: MAG HYDROX/ALUMINUM HYD/SIMETH 30 ML ORAL.SUSP PO PRN (12:00)
[2020-09-22] MEDS ORDERED: oxyCODONE/APAP 5/325 1 TAB TABLET PO ONE ×2 (12:00)
[2020-09-22] MEDS ORDERED: IV NORMAL SALINE 1000ML BAG 1,000 ML IV SCH (12:00)
[2020-09-22] MEDS ORDERED: diphenhydrAMINE HCL 25 MG CAPSULE PO PRN (12:00)
[2020-09-22] MEDS ORDERED: 0.9 % SODIUM CHLORIDE 10 ML DISP.SYRIN. IV PRN (12:00)
[2020-09-22] MEDS ORDERED: ZOLPIDEM 5 MG TABLET. PO PRN (12:00)
[2020-09-22] MEDS ORDERED: METH-38 PO (12:06)
[2020-09-22] MEDS ORDERED: SENN1TAB99 PO (12:07)
[2020-09-22] MEDS: fentaNYL PF VIAL 100 MCG/2 ML VIAL IV PRN ×3 (12:27→13:33)
[2020-09-22] MEDS ORDERED: MORPHINE SULFATE 2 MG/ML VIAL. ONE (12:42)
[2020-09-22] MEDS: MORPHINE SULFATE 2 MG/ML VIAL. IV PRN ×2 (12:45→12:59)
[2020-09-22] MEDS ORDERED: METHOCARBAMOL 750 MG TABLET PO SCH (14:00)
[2020-09-22 14:05] VITALS: BP 127/77
[2020-09-22] MEDS ORDERED: FERROUS SULFATE 325 MG TABLET. PO SCH (17:00)
[2020-09-22] MEDS ORDERED: DOCUSATE SODIUM 100 MG CAPSULE. PO SCH (21:00)
[2020-09-22] MEDS ORDERED: SENNOSIDES/DOCUSATE 8.6/50MG TABLET. PO SCH (21:00)
[2020-09-23] MEDS ORDERED: MULTIVITAMIN with MINERAL TABLET. PO SCH (09:00)
--- NOTE | 2020-09-23 14:27 | OP ---
DATE OF SURGERY: 09/22/2020 SURGEON: Reji Velasco MD PEN TENDER: None. PREOPERATIVE DIAGNOSIS: Herniated nucleus pulposus L5-S1 with radiculopathy and weakness. POSTOPERATIVE DIAGNOSIS: Herniated nucleus pulposus L5-S1 with radiculopathy and weakness. PROCEDURE: Left L5-S1 hemilaminotomy with discectomy, intraoperative use of microscope, intraoperative use of neuromonitoring. ANESTHESIA: General. COMPLICATIONS: None. INDICATIONS FOR THE PROCEDURE: The patient is a 40-year-old male who presented with a sudden onset left lower extremity pain with associated ankle weakness. Imaging revealed a disk herniation with a caudally displaced disk fragment at L5-S1 producing mass effect on the adjacent neural elements. Please refer to the patient's chart for additional detail. DESCRIPTION OF PROCEDURE: After informed consent was obtained, the patient was brought to the operating room. He was placed under general anesthesia. He was placed in the prone position on the Cristóbal frame. All pressure points were checked and padded appropriately. Ancef was administered as a prophylactic antibiotic. An incision location was planned at the lumbar region with fluoroscopy and the lumbar region was prepped and draped in the usual sterile fashion. Baseline potentials were obtained. A vertical incision centered over the region of L5-S1 was made with a 10 blade scalpel. Monopolar electrocautery was utilized to dissect the avascular midline to the spinous processes at this location and leftward across the lamina at this location. Level was again verified with fluoroscopy prior to the initiation of decompression. A left hemilaminotomy was performed at L5-S1 utilizing pneumatic drill as well as a Kerrison rongeur. The underlying ligament was gently teased away from the neural elements and removed with a Kerrison rongeur. Neural elements were gently retracted medially and a large annulus was identified. This was gently incised with 11 blade scalpel. Disk material emerged briskly under pressure. This was removed in a piecemeal fashion with a blunt nerve hook as well as pituitary rongeur. Additional disk material was teased posterolaterally with a blunt nerve hook as well as a Marlon and removed with pituitary rongeurs. Just caudal to the disk space, a large herniated disk fragment was also identified and this was gently teased posterolaterally and removed with a pituitary rongeur. Upon completion of the decompression and discectomy, which was verified with direct visualization and gentle palpation with a Marlon, the neural elements were noted to be very well decompressed. This was also verified by noting improvement of neuromonitoring potentials upon completion of the decompression and completion of the entire procedure. Once decompression and discectomy was complete, the wound was generously irrigated with antibiotic irrigation and pristine hemostasis was achieved with FloSeal, cottonoids, and some use of bipolar electrocautery. Muscles and fascia were then reapproximated with 0 Vicryl in a simple interrupted fashion. Subcutaneous tissues were reapproximated with 2-0 Vicryl in interrupted inverted fashion and the skin was reapproximated with 4-0 Vicryl in a running subcuticular fashion. Mastisol and Steri-Strips were applied and the wound was dressed with Telfa, 4 x 4, and Tegaderm. At the end of the procedure, all needle and sponge counts were correct. Again, neuromonitoring was improved compared to baseline at the completion of the procedure. The patient was subsequently extubated in the operating room and taken to recovery in stable condition. There were no intraprocedural complications apparent. REJI VELASCO MD DR: ANGELIAN/trinity JOB#: [id number] / [id number] MP
--- NOTE | 2020-09-24 14:07 | PATHOLOGY ---
[facility] Accession Number: [id number] . 01 Material submitted: . vertebral column - LUMBOSACRAL DISC 2ND DECOMPRESSION . 01 Clinical history: . L5/S1 HERNIATED DISC, RADICULOPATHY . 02 Diagnosis: Segments of cartilaginous and fibroadipose tissue and calcified bone, lumbosacral disc and decompression: - Degenerative changes of cartilaginous tissue. (JP:magnetic resonance imaging director; 09/24/2020) MBR 09/24/2020 1202 Local . 02 Comment: There is no evidence of an acute inflammatory process or malignancy. (JPM:magnetic resonance imaging director; 09/24/2020) . 02 Electronically signed: . Blair Hampton MD, Pathologist NPI- [id number] . 01 Gross description: . Received in formalin labeled "Anayeli,Cherzong, lumbosacral disc and decompression" are multiple, irregular, rojas-brown fragments of soft and gritty tissue measuring in aggregate 6.9 x 4.1 x 1.4 cm. The specimen is sectioned to reveal rojas white cut surfaces. Bods Developer sections of the specimen are submitted in cassette A1 ([facility]; 09/23/2020) GZA/GZA 09/24/2020 1200 Local . 02 Pathologist provided ICD-10: M51.36 . 02 CPT . 363709, [id number] Specimen Comment: Report sent to Performed at: 01 [facility] [address], [place] [id number] MD Eugene العراقي MD Phone: [phone] Performed at: 02 [facility] [address] [place], [place] [id number] MD Blair Hampton MD Phone: [phone]
== END 2020-09-22 15:15 | disposition home or self-care (01) ==
LOC: SURG 07:01
PROVIDERS: ATTEND Neurological Surgery
DX: M51.16 Intervertebral disc disorders with radiculopathy, lumbar region (principal); R53.1 Weakness; M79.662 Pain in left lower leg; Z98.890 Other specified postprocedural states; Z79.899 Other long term (current) drug therapy
CPT/HCPCS: 63030; 97116; 97162; 97530; J0330; J0690; J1100; J2250; J2270; J2370; J2405; J2704; J2710; J3010; J3490; J7030; J7120; 76000